=== PATIENT | female | born 1980 | race Caucasian/White ===

== ENCOUNTER 2023-10-23 16:00 | Emergency (ER) | payer OTHER, SELFPAY ==
[2023-10-23 16:08] VITALS: BP 137/85; PULSE 68; RESP 16; TEMP 36.4; O2SAT 99; BMI 23.6
--- NOTE | 2023-10-23 16:17 | XRR_ITS ---
PROCEDURE INFORMATION: Exam: XR Right Foot Exam date and time: 10/23/2023 4:27 PM Age: 43 years old Clinical indication: Injury or trauma; Other: Burn to RT foot; Right TECHNIQUE: Imaging protocol: Radiologic exam of the right foot. Views: 3 or more views. COMPARISON: No relevant prior studies available. FINDINGS: Bones/joints: No fracture or other acute abnormality. Joint spaces are normal. Soft tissues: There are 2 needle fragments in the plantar soft tissues at the base of the proximal phalanx of the great toe. XR/XR foot RT min 3V* [id number] IMPRESSION: There are 2 needle fragments in the plantar soft tissues at the base of the proximal phalanx of the great toe. No osseous or joint abnormality.
--- NOTE | 2023-10-23 16:20 | W.ED.EXTPRO ---
HPI - Extremity Problem General: Chief complaint: Extremity Injury, Lower Stated complaint: kiran on feet Time Seen by Provider: 10/23/23 16:14 Source: patient Mode of arrival: ambulatory Limitations: no limitations History of Present Illness: 43-year-old female states she is pulling off a steam line at work states she dropped them onto her foot she had actually dropped the pain on the right foot she has some pain on the right foot but she does have second-degree kiran with blistering to the right foot states the kiran are quite painful she is unsure when her last tetanus was denies any other injuries. Associated symptoms: Deny chest pain, fever(s) or rash Review of Systems Const: Denies: fever(s), chills, body aches or change in appetite ENMT: Denies: throat pain or dental pain Card: Denies: chest pain Resp: Denies: dyspnea GI: Denies: abdominal pain, nausea, vomiting or diarrhea Musc: Denies: neck pain or back pain Skin/Breast: Denies: rash Neuro: Denies: headache(s) PFSH ED PFSH: Social History Smoking and tobacco/nicotine status: current every day tobacco/nicotine user Physical Exam Const: COMMON NORMALS: no acute distress and healthy appearing HENMT: COMMON NORMALS: normocephalic and atraumatic HEAD & SCALP: normocephalic and atraumatic Neck/C-Spine: COMMON NORMALS: full ROM and supple Chest: COMMONS NORMALS: normal inspection of the chest Resp: COMMON NORMALS: normal respiratory effort Cardio: COMMON NORMALS: regular rate, regular rhythm and No murmurs present (Cardio) RATE: regular rate RHYTHM: regular rhythm Extremity: COMMON NORMALS: normal to inspection Skin: NARRATIVE SKIN EXAM: Partial-thickness burn to right foot with some blistering roughly 1% of body surface area Course Vital Signs: Vital signs: Vital Signs Temperature 97.6 F 10/23/23 16:08 Pulse Rate 68 10/23/23 16:08 Respiratory Rate 16 10/23/23 16:08 Blood Pressure 137/85 10/23/23 16:08 Pulse Oximetry 99 10/23/23 16:08 Oxygen Delivery Me thod Room Air 10/23/23 16:08 MDM - Extremity (Nontraumatic) Medical Decision Making Patient presents here with a burn to the right foot partial-thickness burn x-ray shows no acute fracture she does have foreign body noted she states that there is fragments have been there for quite some time we will place her on pain meds she is follow-up with PCP and return if worsening. Medical Records I reviewed the patient's medical records. Lab Data Radiology Impressions Foot X-Ray 10/23/23 16:17 IMPRESSION: There are 2 needle fragments in the plantar soft tissues at the base of the proximal phalanx of the great toe. No osseous or joint abnormality. All radiology interpretation(s) finalized by discharge Discharge Plan Discharge Patient Disposition: Home Clinical Impression: Burn of foot Condition: Stable Prescriptions: New hydrocodone-acetaminophen 5-325 mg tablet 1 tab PO Q6H PRN (Reason: pain) Qty: 14 0RF No Action methylprednisolone [Medrol (Ezequiel)] 4 mg tablets,dose pack See Rx Instructions PO PER PKG DIR Qty: 21 0RF Rx Instructions: PO PER PKG DIR cephalexin 500 mg capsule 500 mg PO TID 10 Days Qty: 30 0RF Discharge Orders: Discharge ED (Routine); Ordered 10/23/23 Ordered By: Jose Martin Mayo Discharge Diet: Advance as tolerated Discharge Activity: Resume usual activity Patient Instructions: Superficial Burn (ED), Opioid Safety Coding Level of Care Code ED Epidemiology Intern for Mark Raphael
[2023-10-23] MEDS: tetanus-dipt-pertussis 0.5 mL SDV IM (16:44)
[2023-10-23] MEDS: HYDROcodone-acetaminophen 7.5-325 mg Tablet 1 TAB PO (16:47)
== END 2023-10-23 17:19 | disposition home or self-care (01) ==
PROVIDERS: Emergency Provider Emergency Medicine
DX: T25.221A Burn of second degree of right foot, initial encounter (principal); T31.0 Burns involving less than 10% of body surface; X10.1XXA Contact with hot food, initial encounter; Z72.0 Tobacco use; Z23 Encounter for immunization
CPT/HCPCS: 73630; 90471; 90715; 99283